=== PATIENT | male | born 1945 | race Asian ===

== ENCOUNTER 2020-05-30 04:39 | Emergency (ER) | payer OTHER, BC ==
[~2020-05-30] VITALS: Ht 185.4 cm; Wt 83.9 kg
[2020-05-30 04:59] VITALS: BP_SYST 154
--- NOTE | 2020-05-30 04:59 | NUR ---
Pt brought to ED by . Pt states that he has lower back pain starting approx 3 days ago. pt states that he doesnt have any urinary symptoms, or difficulty passing stool. Pt states that he has been trying to manage lower back pain with motrin, no relief. Pt denies chest pain, nausea, vomiting, diarrhea, shortness of breath. Pt denies any other medical complaint at this time. Pt seated in ED bed, no acute distress.
--- NOTE | 2020-05-30 04:59 | NUR ---
Pt ambulatory to bed 3 for evaluation
[2020-05-30] MEDS: HYDROcodone/ACETAMIN 5-325 MG TAB (NORCO/ VICODIN) PO ONE (06:15)
--- NOTE | 2020-05-30 06:44 | NUR ---
FARTUN Lopez at bedside examining patient.
[2020-05-30 07:11] VITALS: BP_SYST 154
--- NOTE | 2020-05-30 07:11 | NUR ---
Patient given written and verbal discharge instructions and verbalizes understanding. ER MD discussed with patient the results and treatment provided. Patient in stable condition. ID arm band removed. Rx of flexeril and naprosyn given. Patient educated on pain management and to follow up with PMD. Pain Scale 2/10. Opportunity for questions provided and answered. Medication side effect fact sheet provided.
== END 2020-05-30 07:11 | disposition home or self-care (01) ==
LOC: SED 04:39
DX: M54.5 Low back pain (principal); K21.9 Gastro-esophageal reflux disease without esophagitis; J45.909 Unspecified asthma, uncomplicated; E78.00 Pure hypercholesterolemia, unspecified
CPT/HCPCS: 72131; 99284